=== PATIENT | male | born 1985 | race Two or more races ===

== ENCOUNTER 2023-06-14 22:03 | Emergency (ER) | payer MEDICAID ==
[~2023-06-14] VITALS: Ht 182.9 cm; Wt 109.1 kg
[2023-06-15] MEDS ORDERED: HYDROCODONE/ACETAMINOPHEN 5-325 MG TABLET PO ONE (01:00)
[2023-06-15] MEDS ORDERED: TRAM-559 PO (03:31)
[2023-06-15 03:56] VITALS: BP 135/74; PULSE 84; RESP 18; TEMP 97.3
== END 2023-06-15 04:13 | disposition home or self-care (01) ==
LOC: EMS 22:04
DX: S82.001A Unspecified fracture of right patella, initial encounter for closed fracture (principal); V99.XXXA Unspecified transport accident, initial encounter; Y93.89 Activity, other specified; Y92.89 Other specified places as the place of occurrence of the external cause; Y99.8 Other external cause status
CPT/HCPCS: 72040; 99284; 73030-TC; 73562-TC; Z7502; Z7610